=== PATIENT | female | born 2000 | race Caucasian/White ===

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

== ENCOUNTER 2019-03-01 03:42 | Emergency (ER) | payer BC, OTHER ==
[~2019-03-01] VITALS: Ht 175.3 cm; Wt 97.5 kg
[~2019-03-01 03:42] MED LIST changes: +CETI5 PO; +Flovent Diskus50 MCG
[2019-03-01] MEDS ORDERED: PROP10 PO (04:18)
== END 2019-03-01 05:35 | disposition home or self-care (01) ==
LOC: ER 03:42
DX: M54.6 Pain in thoracic spine (principal); Z79.899 Other long term (current) drug therapy; Z79.82 Long term (current) use of aspirin
CPT/HCPCS: 96372; 99283-25; J1885

== ENCOUNTER 2019-03-23 10:38 | Emergency (ER) | payer BC, OTHER ==
[~2019-03-23] VITALS: Ht 177.8 cm; Wt 99.8 kg
[~2019-03-23 10:38] MED LIST changes: +PROP10 PO
[2019-03-23] MEDS ORDERED: Esgic Tablet1 EACH PO (13:02)
== END 2019-03-23 13:15 | disposition home or self-care (01) ==
LOC: ER 10:38
DX: G43.909 Migraine, unspecified, not intractable, without status migrainosus (principal); Z79.899 Other long term (current) drug therapy; Z79.82 Long term (current) use of aspirin
CPT/HCPCS: 93005; 93010; 96361; 96374; 96375; 99283-25; J1200; J1885; J2550; J7120

== ENCOUNTER 2020-01-04 10:57 | Emergency (ER) | payer BC, OTHER ==
[~2020-01-04] VITALS: Ht 170.2 cm; Wt 95.2 kg
[~2020-01-04 10:57] MED LIST changes: +Esgic Tablet1 EACH PO
[2020-01-04] MEDS ORDERED: MIDODRINE HCL10 MG PO (11:22)
[2020-01-04] MEDS ORDERED: AMOCLA875 PO (11:47)
== END 2020-01-04 11:56 | disposition home or self-care (01) ==
LOC: ER 10:57
DX: J32.9 Chronic sinusitis, unspecified (principal); B96.89 Other specified bacterial agents as the cause of diseases classified elsewhere; Z79.82 Long term (current) use of aspirin; Z79.899 Other long term (current) drug therapy
CPT/HCPCS: 99283

== ENCOUNTER 2020-03-08 06:39 | Day surgery (SDC) | payer BC, OTHER ==
[~2020-03-08] VITALS: Ht 177.8 cm; Wt 107.8 kg
[~2020-03-08 06:39] MED LIST changes: +AMOCLA875 PO; +EXTRA PAIN REL1 EAC2 PO; -Excedrin Extra1 EACH PO; +MIDODRINE HCL10 MG PO
--- NOTE | 2020-03-08 08:59 | NUR ---
PT IV DC'D INTACT, PT DRESSED, LOOP EXPLANT SITE STABLE, PT DC'D, PT AMBULATING ON OWN, MOM DRIVING PT HOME, PT ATE 75% BREAKFAST
== END 2020-03-08 09:00 | disposition home or self-care (01) ==
LOC: MHTC 06:39
DX: Z45.010 Encounter for checking and testing of cardiac pacemaker pulse generator [battery] (principal); I49.8 Other specified cardiac arrhythmias; R00.2 Palpitations; R55 Syncope and collapse; R42 Dizziness and giddiness; I95.9 Hypotension, unspecified; G43.909 Migraine, unspecified, not intractable, without status migrainosus; J30.2 Other seasonal allergic rhinitis; Z79.82 Long term (current) use of aspirin; Z79.899 Other long term (current) drug therapy
CPT/HCPCS: 33286; 99152; 99153; J0690; J2250; J3010; J7030; J7040

== ENCOUNTER 2020-11-01 20:57 | Emergency (ER) | payer OTHER, BC ==
[~2020-11-01] VITALS: Ht 177.8 cm; Wt 99.8 kg
[2020-11-01] MEDS ORDERED: Amoxicillin500 MG PO (23:14)
[2020-11-01] MEDS ORDERED: OXYC5 PO (23:52)
== END 2020-11-02 00:13 | disposition home or self-care (01) ==
LOC: ER 20:57
DX: S39.013A Strain of muscle, fascia and tendon of pelvis, initial encounter (principal); S66.911A Strain of unspecified muscle, fascia and tendon at wrist and hand level, right hand, initial encounter; S86.912A Strain of unspecified muscle(s) and tendon(s) at lower leg level, left leg, initial encounter; V28.4XXA Motorcycle driver injured in noncollision transport accident in traffic accident, initial encounter
CPT/HCPCS: 72170; 73110; 73590; 99284-25; A9270

== ENCOUNTER → 2021-04-14 | Outpatient (CLI) | payer OTHER ==
[~2021-04-14] MED LIST changes: +Amoxicillin500 MG PO; +OXYC5 PO
== END ==
LOC: LAB SHORT 10:50 → LAB 10:50
PROVIDERS: Registered Nurse Community Health
DX: Z12.4 Encounter for screening for malignant neoplasm of cervix (principal)
CPT/HCPCS: G0123

== ENCOUNTER 2021-08-07 22:05 | Emergency (ER) | payer OTHER ==
[~2021-08-07] VITALS: Ht 177.8 cm; Wt 97.5 kg
[2021-08-08] MEDS ORDERED: SERT100 PO (01:35)
[2021-08-08] MEDS ORDERED: CYCL10 PO (01:35)
== END 2021-08-08 02:03 | disposition home or self-care (01) ==
LOC: ER 22:05
DX: M62.830 Muscle spasm of back (principal); Z79.899 Other long term (current) drug therapy
CPT/HCPCS: 96372; 99283-25; A9270; J1100; J1885

== ENCOUNTER → 2022-04-18 | Outpatient (CLI) | payer OTHER ==
[~2022-04-18] MED LIST changes: +CYCL10 PO; +MIDO5 PO; -MIDODRINE HCL10 MG PO; +SERT100 PO
[2022-04-19 15:11] LABS: HPV 16 Negative (Negative); HPV 18 Negative (Negative); HPV OTHER HR TYPES Negative (Negative)
== END | disposition home or self-care (01) ==
LOC: LAB SHORT 16:20
PROVIDERS: Registered Nurse Community Health
DX: Z12.4 Encounter for screening for malignant neoplasm of cervix (principal)
CPT/HCPCS: 87624; G0145

== ENCOUNTER → 2022-08-03 | Outpatient (CLI) | payer OTHER ==
[2022-08-03 18:37] LABS: Hematocrit 40.5 % (33.0-51.0); Hemoglobin 13.9 g/dL (11.5-16.0)
[2022-08-03 19:12] LABS: Free Thyroxine 0.88 ng/dL (0.70-1.60)
[2022-08-03 19:14] LABS: Thyroid Stimulating Hormone 1.99 uIU/mL (0.360-4.800); Triiodothyronine, Free 2.6 pg/mL (2.18-3.98)
== END | disposition home or self-care (01) ==
LOC: LAB SHORT 17:20 → LAB 17:20
PROVIDERS: Registered Nurse Community Health
DX: Z31.9 Encounter for procreative management, unspecified (principal); N92.0 Excessive and frequent menstruation with regular cycle; N94.6 Dysmenorrhea, unspecified
CPT/HCPCS: 84439; 84443; 84481; 85014; 85018

== ENCOUNTER → 2022-09-19 | Outpatient (CLI) | payer OTHER ==
[2022-09-19 12:25] LABS: BASOPHILS ABSOLUTE AUTO 0.03 K/mm3 (0.00-0.23); BASOPHILS PERCENT AUTO 0 % (0-2); EOSINOPHILS ABSOLUTE AUTO 0.07 K/mm3 (0.00-0.68); EOSINOPHILS PERCENT AUTO 1 % (0-6); Hematocrit 39.9 % (33.0-51.0); Hemoglobin 13.6 g/dL (11.5-16.0); IMMATURE GRAN ABSOLUTE AUTO 0.02 K/mm3 (0.00-0.10); IMMATURE GRAN PERCENT AUTO 0 % (0-1); LYMPHOCYTES ABSOLUTE AUTO 1.21 K/mm3 (0.84-5.20); LYMPHOCYTES PERCENT AUTO 18 % (21-46); MONOCYTES ABSOLUTE AUTO 0.48 K/mm3 (0.16-1.47); MONOCYTES PERCENT AUTO 7 % (4-13); Mean Corpuscular HGB 29.6 pg (26.0-34.0); Mean Corpuscular HGB Conc 34.1 g/dL (31.5-36.5); Mean Corpuscular Volume 87 fL (80-100); Mean Platelet Volume 10.3 fL (9.1-12.4); NEUTROPHILS ABSOLUTE AUTO 5.07 K/mm3 (1.96-9.15); NEUTROPHILS PERCENT AUTO 74 % (41-73); Platelet Count 273 K/mm3 (150-400); RDW Coefficient Variation 12.5 % (11.7-14.2); RDW Standard Deviation 39.8 fL (35.1-46.3); Red Blood Cell Count 4.59 M/mm3 (3.80-5.20); White Blood Cell Count 6.88 K/mm3 (4.00-11.30)
[2022-09-19 12:28] LABS: Bun/Creatinine Ratio 11.1 (12.0-20.0); Calcium, Blood 9.1 mg/dL (8.5-10.1); Creatinine, Blood 0.9 mg/dL (0.40-1.00)
== END | disposition home or self-care (01) ==
LOC: LAB SHORT 12:19 → LAB 12:19
PROVIDERS: Physician Assistant Medical
DX: N93.9 Abnormal uterine and vaginal bleeding, unspecified (principal)
CPT/HCPCS: 80048; 85025

== ENCOUNTER 2022-12-08 04:38 | Day surgery (SDC) | payer OTHER ==
[2022-12-08 15:09] VITALS: BP 126/92
== END 2022-12-08 16:25 | disposition home or self-care (01) ==
LOC: ATC 04:38
DX: O21.0 Mild hyperemesis gravidarum (principal); Z3A.00 Weeks of gestation of pregnancy not specified; Z79.899 Other long term (current) drug therapy
CPT/HCPCS: 96361; 96374; J2405; J7120

== ENCOUNTER 2022-12-11 00:02 | Day surgery (SDC) | payer OTHER ==
[2022-12-11 15:06] VITALS: BP 127/75
== END 2022-12-11 16:05 | disposition home or self-care (01) ==
LOC: ATC 00:02
DX: O21.0 Mild hyperemesis gravidarum (principal); Z3A.00 Weeks of gestation of pregnancy not specified
CPT/HCPCS: 96361; 96374; J2405; J7120

== ENCOUNTER 2022-12-15 00:23 | Day surgery (SDC) | payer OTHER ==
[2022-12-15 14:08] VITALS: BP 125/83
== END 2022-12-15 15:12 | disposition home or self-care (01) ==
LOC: ATC 00:23
DX: O21.0 Mild hyperemesis gravidarum (principal); Z3A.00 Weeks of gestation of pregnancy not specified
CPT/HCPCS: 96361; 96374; J2405; J7120

== ENCOUNTER 2022-12-18 07:21 | Day surgery (SDC) | payer OTHER ==
[2022-12-18 14:28] VITALS: BP 120/70
== END 2022-12-18 15:30 | disposition home or self-care (01) ==
LOC: ATC 07:21
DX: O21.0 Mild hyperemesis gravidarum (principal); Z3A.00 Weeks of gestation of pregnancy not specified
CPT/HCPCS: 96361; 96374; J2405; J7120

== ENCOUNTER 2022-12-20 02:33 | Day surgery (SDC) | payer OTHER ==
[2022-12-20 14:54] VITALS: BP 126/80
== END 2022-12-20 15:46 | disposition home or self-care (01) ==
LOC: ATC 02:33
DX: O21.0 Mild hyperemesis gravidarum (principal)
CPT/HCPCS: 96361; 96374; J2405; J7120

== ENCOUNTER 2022-12-22 02:53 | Day surgery (SDC) | payer OTHER ==
[2022-12-22 13:41] VITALS: BP 125/83
== END 2022-12-22 14:54 | disposition home or self-care (01) ==
LOC: ATC 02:53
DX: O21.0 Mild hyperemesis gravidarum (principal); Z3A.00 Weeks of gestation of pregnancy not specified
CPT/HCPCS: 96361; 96374; J2405; J7120

== ENCOUNTER 2022-12-25 15:32 | Day surgery (SDC) | payer OTHER ==
[2022-12-25 15:47] VITALS: BP 131/76
== END 2022-12-25 16:49 | disposition home or self-care (01) ==
LOC: ATC 15:32
DX: O21.0 Mild hyperemesis gravidarum (principal); Z3A.00 Weeks of gestation of pregnancy not specified
CPT/HCPCS: 96361; 96374; J2405; J7120

== ENCOUNTER 2022-12-27 04:55 | Day surgery (SDC) | payer OTHER ==
[2022-12-27 15:15] VITALS: BP 137/87
== END 2022-12-27 16:22 | disposition home or self-care (01) ==
LOC: ATC 04:55
DX: O21.0 Mild hyperemesis gravidarum (principal); Z3A.00 Weeks of gestation of pregnancy not specified
CPT/HCPCS: 96361; 96374; J2405; J7120

== ENCOUNTER 2022-12-29 04:58 | Day surgery (SDC) | payer OTHER ==
[2022-12-29 15:32] VITALS: BP 142/86
== END 2022-12-29 16:47 | disposition home or self-care (01) ==
LOC: ATC 04:58
DX: O21.0 Mild hyperemesis gravidarum (principal); Z3A.00 Weeks of gestation of pregnancy not specified
CPT/HCPCS: 96361; 96374; J2405; J7120

== ENCOUNTER 2023-01-01 00:54 | Day surgery (SDC) | payer OTHER ==
[2023-01-01 13:54] VITALS: BP 123/95
== END 2023-01-01 14:55 | disposition home or self-care (01) ==
LOC: ATC 00:54
DX: O21.0 Mild hyperemesis gravidarum (principal); Z3A.00 Weeks of gestation of pregnancy not specified
CPT/HCPCS: 96361; 96374; J2405; J7120

== ENCOUNTER 2023-01-03 02:19 | Day surgery (SDC) | payer OTHER ==
[2023-01-03 15:26] VITALS: BP 128/75
== END 2023-01-03 15:59 | disposition home or self-care (01) ==
LOC: ATC 02:19
DX: O21.0 Mild hyperemesis gravidarum (principal); Z3A.00 Weeks of gestation of pregnancy not specified
CPT/HCPCS: 96361; 96374; C1751; J2405; J7120

== ENCOUNTER 2023-01-05 02:36 | Day surgery (SDC) | payer OTHER ==
[2023-01-05 13:57] VITALS: BP 129/76
== END 2023-01-05 23:01 | disposition home or self-care (01) ==
LOC: ATC 02:36
DX: O21.0 Mild hyperemesis gravidarum (principal); Z3A.00 Weeks of gestation of pregnancy not specified
CPT/HCPCS: 96361; 96374; J2405; J7120

== ENCOUNTER 2023-01-08 11:35 | Day surgery (SDC) | payer OTHER ==
[2023-01-08 11:40] VITALS: BP 131/87
== END 2023-01-08 12:56 | disposition home or self-care (01) ==
LOC: ATC 11:35
DX: O21.9 Vomiting of pregnancy, unspecified (principal); Z3A.00 Weeks of gestation of pregnancy not specified
CPT/HCPCS: 96361; 96374; J2405; J7120

== ENCOUNTER 2023-01-10 04:46 | Day surgery (SDC) | payer OTHER ==
[2023-01-10 08:32] VITALS: BP 133/81
== END 2023-01-10 09:41 | disposition home or self-care (01) ==
LOC: ATC 04:46
DX: O21.0 Mild hyperemesis gravidarum (principal); O99.891 Other specified diseases and conditions complicating pregnancy; R22.32 Localized swelling, mass and lump, left upper limb; Z3A.00 Weeks of gestation of pregnancy not specified; Z79.899 Other long term (current) drug therapy
CPT/HCPCS: 96361; 96374; J2405; J7120

== ENCOUNTER → 2023-01-11 | Outpatient (CLI) | payer OTHER ==
[2023-01-13 00:08] LABS: CHLAMYDIA TRACHOMATIS, NAA Negative (Negative)
== END ==
LOC: LAB SHORT 15:40 → LAB 15:40
PROVIDERS: Registered Nurse Community Health
DX: Z34.01 Encounter for supervision of normal first pregnancy, first trimester (principal)
CPT/HCPCS: 87491; 87591

== ENCOUNTER 2023-01-12 04:33 | Day surgery (SDC) | payer OTHER ==
[2023-01-12 13:40] VITALS: BP 135/84
--- NOTE | 2023-01-12 16:26 | NUR ---
PT REPORTS THAT SHE HAD SPOKEN WITH Simin TREVINO AND IS EXPECTING TO HAVE NEW ORDERS FOR A DIFFERENT ANTIEMETIC. NO NEW ORDERS REC'D AT THIS TIME. FAXED A REQUEST TO Simin TREVINO'S OFFICE TO CHECK ON STATUS OF POSSIBLE NEW MEDICATION FOR NAUSEA. PT REPORTS SHE WAS AT URGENT CARE ON SUNDAY AND THEY CONFIRMED A CLOOD CLOT TO HER TAMIKO.
== END 2023-01-12 15:00 | disposition home or self-care (01) ==
LOC: ATC 04:33
DX: O21.0 Mild hyperemesis gravidarum (principal); Z3A.00 Weeks of gestation of pregnancy not specified; Z88.8 Allergy status to other drugs, medicaments and biological substances
CPT/HCPCS: 96361; 96374; J2405; J7120

== ENCOUNTER 2023-01-17 01:47 | Day surgery (SDC) | payer OTHER ==
[2023-01-17 15:12] VITALS: BP 157/79
== END 2023-01-17 16:10 | disposition home or self-care (01) ==
LOC: ATC 01:47
DX: O21.0 Mild hyperemesis gravidarum (principal)
CPT/HCPCS: 96361; 96374; C1751; J2405; J7120

== ENCOUNTER 2023-01-19 01:44 | Day surgery (SDC) | payer OTHER ==
[2023-01-19 14:22] VITALS: BP 140/91
== END 2023-01-19 15:26 | disposition home or self-care (01) ==
LOC: ATC 01:44
DX: O21.0 Mild hyperemesis gravidarum (principal); Z3A.00 Weeks of gestation of pregnancy not specified
CPT/HCPCS: 96361; 96374; 96375; J2405; J2765; J7120

== ENCOUNTER 2023-01-22 00:20 | Day surgery (SDC) | payer OTHER ==
[2023-01-22 10:29] VITALS: BP 124/90
== END 2023-01-22 11:41 | disposition home or self-care (01) ==
LOC: ATC 00:20
DX: O21.0 Mild hyperemesis gravidarum (principal)
CPT/HCPCS: 96361; 96374; J2405; J7120

== ENCOUNTER 2023-01-24 05:56 | Day surgery (SDC) | payer OTHER ==
[2023-01-24 16:07] VITALS: BP 125/81
== END 2023-01-24 17:11 | disposition home or self-care (01) ==
LOC: ATC 05:56
DX: O21.0 Mild hyperemesis gravidarum (principal); Z3A.00 Weeks of gestation of pregnancy not specified
CPT/HCPCS: 96361; 96374; J2405; J7120

== ENCOUNTER 2023-01-26 02:28 | Day surgery (SDC) | payer OTHER ==
[2023-01-26 14:49] VITALS: BP 148/93
== END 2023-01-26 15:55 | disposition home or self-care (01) ==
LOC: ATC 02:28
DX: O21.0 Mild hyperemesis gravidarum (principal)
CPT/HCPCS: 96361; 96374; J2405; J7120

== ENCOUNTER 2023-01-29 01:44 | Day surgery (SDC) | payer OTHER ==
[2023-01-29 13:10] VITALS: BP 153/80
== END 2023-01-29 14:18 | disposition home or self-care (01) ==
LOC: ATC 01:44
DX: O21.0 Mild hyperemesis gravidarum (principal); Z3A.00 Weeks of gestation of pregnancy not specified
CPT/HCPCS: 96361; 96374; J2405; J7120

== ENCOUNTER 2023-01-31 02:13 | Day surgery (SDC) | payer OTHER ==
[2023-01-31 14:39] VITALS: BP 133/79
== END 2023-01-31 15:44 | disposition home or self-care (01) ==
LOC: ATC 02:13
DX: O21.0 Mild hyperemesis gravidarum (principal); Z3A.00 Weeks of gestation of pregnancy not specified
CPT/HCPCS: 96361; 96374; J2405; J7120

== ENCOUNTER 2023-02-02 10:46 | Day surgery (SDC) | payer OTHER ==
[2023-02-02 14:18] VITALS: BP 148/89
== END 2023-02-02 15:18 | disposition home or self-care (01) ==
LOC: ATC 10:46
DX: O21.0 Mild hyperemesis gravidarum (principal); Z3A.00 Weeks of gestation of pregnancy not specified
CPT/HCPCS: 96361; 96374; J2405; J7120

== ENCOUNTER 2023-02-05 02:28 | Day surgery (SDC) | payer OTHER ==
[2023-02-05 10:46] VITALS: BP 131/89
== END 2023-02-05 11:50 | disposition home or self-care (01) ==
LOC: ATC 02:28
DX: O21.0 Mild hyperemesis gravidarum (principal); Z3A.00 Weeks of gestation of pregnancy not specified
CPT/HCPCS: 96361; 96374; J2405; J7120

== ENCOUNTER 2023-02-07 02:01 | Day surgery (SDC) | payer OTHER ==
[2023-02-07 10:30] VITALS: BP 135/82
== END 2023-02-07 11:39 | disposition home or self-care (01) ==
LOC: ATC 02:01
DX: O21.0 Mild hyperemesis gravidarum (principal)
CPT/HCPCS: 96361; 96374; J2405; J7120

== ENCOUNTER 2023-02-08 02:42 | Day surgery (SDC) | payer OTHER ==
[2023-02-08 15:38] VITALS: BP 143/80
== END 2023-02-08 16:42 | disposition home or self-care (01) ==
LOC: ATC 02:42
DX: O21.0 Mild hyperemesis gravidarum (principal); Z3A.00 Weeks of gestation of pregnancy not specified; Z79.899 Other long term (current) drug therapy
CPT/HCPCS: 96361; 96374; J2405; J7120

== ENCOUNTER 2023-02-13 03:02 | Day surgery (SDC) | payer OTHER ==
--- NOTE | 2023-02-12 15:26 | NUR ---
PT CALLED AND CANCELED HER APPOINTMENT IN THE [facility] TODAY.
[2023-02-13 16:00] VITALS: BP 135/82
[2023-02-13] MEDS ORDERED: TRANSDERM-SCOP1 EA13 TD (16:04)
== END 2023-02-13 17:03 | disposition home or self-care (01) ==
LOC: ATC 03:02
DX: O21.0 Mild hyperemesis gravidarum (principal); G43.909 Migraine, unspecified, not intractable, without status migrainosus; Z79.899 Other long term (current) drug therapy
CPT/HCPCS: 96361; 96374; J2405; J7120

== ENCOUNTER 2023-02-14 02:03 | Day surgery (SDC) | payer OTHER ==
[~2023-02-14 02:03] MED LIST changes: +TRANSDERM-SCOP1 EA13 TD
[2023-02-14 10:15] VITALS: BP 156/90
== END 2023-02-14 11:42 | disposition home or self-care (01) ==
LOC: ATC 02:03
DX: O21.0 Mild hyperemesis gravidarum (principal); Z3A.00 Weeks of gestation of pregnancy not specified; Z79.899 Other long term (current) drug therapy
CPT/HCPCS: 96361; 96374; C1751; J2405; J7120

== ENCOUNTER 2023-02-16 03:09 | Day surgery (SDC) | payer OTHER ==
[2023-02-16 10:08] VITALS: BP 141/91
== END 2023-02-16 11:07 | disposition home or self-care (01) ==
LOC: ATC 03:09
DX: O21.0 Mild hyperemesis gravidarum (principal)
CPT/HCPCS: 96361; 96374; J2405; J7120

== ENCOUNTER 2023-02-20 04:06 | Day surgery (SDC) | payer OTHER ==
[2023-02-20 16:14] VITALS: BP 137/80
[2023-02-21] MEDS ORDERED: LABE100 PO (14:00)
== END 2023-02-20 17:17 | disposition home or self-care (01) ==
LOC: ATC 04:06
DX: O21.0 Mild hyperemesis gravidarum (principal); Z3A.00 Weeks of gestation of pregnancy not specified
CPT/HCPCS: 96361; 96374; J2405; J7120

== ENCOUNTER 2023-02-21 03:00 | Day surgery (SDC) | payer OTHER ==
[2023-02-21] MEDS ORDERED: LABE100 PO (14:00)
[2023-02-21 14:01] VITALS: BP 143/82
== END 2023-02-21 15:03 | disposition home or self-care (01) ==
LOC: ATC 03:00
DX: O21.0 Mild hyperemesis gravidarum (principal)
CPT/HCPCS: 96361; 96374; J2405; J7120

== ENCOUNTER 2023-02-23 03:56 | Day surgery (SDC) | payer OTHER ==
[~2023-02-23 03:56] MED LIST changes: +LABE100 PO
[2023-02-23 15:58] VITALS: BP 148/87
== END 2023-02-23 17:12 | disposition home or self-care (01) ==
LOC: ATC 03:56
DX: O21.0 Mild hyperemesis gravidarum (principal)
CPT/HCPCS: 96361; 96374; J2405; J7120

== ENCOUNTER 2023-02-26 00:27 | Day surgery (SDC) | payer OTHER ==
[2023-02-26 10:36] VITALS: BP 147/83
== END 2023-02-26 11:45 | disposition home or self-care (01) ==
LOC: ATC 00:27
DX: O21.0 Mild hyperemesis gravidarum (principal)
CPT/HCPCS: 96361; 96374; J2405; J7120

== ENCOUNTER 2023-02-28 00:47 | Day surgery (SDC) | payer OTHER ==
[2023-02-28 15:44] VITALS: BP 131/79
== END 2023-02-28 16:37 | disposition home or self-care (01) ==
LOC: ATC 00:47
DX: O21.0 Mild hyperemesis gravidarum (principal); Z79.899 Other long term (current) drug therapy
CPT/HCPCS: 96361; 96374; C1751; J2405; J7120

== ENCOUNTER 2023-03-02 03:09 | Day surgery (SDC) | payer OTHER ==
[2023-03-02 14:58] VITALS: BP 116/86
== END 2023-03-02 16:06 | disposition home or self-care (01) ==
LOC: ATC 03:09
DX: O21.0 Mild hyperemesis gravidarum (principal); Z3A.00 Weeks of gestation of pregnancy not specified
CPT/HCPCS: 96361; 96374; J2405; J7120

== ENCOUNTER 2023-03-06 01:39 | Day surgery (SDC) | payer OTHER ==
[2023-03-06 15:10] VITALS: BP 127/79
== END 2023-03-06 16:07 | disposition home or self-care (01) ==
LOC: ATC 01:39
DX: O21.0 Mild hyperemesis gravidarum (principal); Z3A.00 Weeks of gestation of pregnancy not specified
CPT/HCPCS: 96361; 96374; J2405; J7120

== ENCOUNTER 2023-03-07 04:44 | Day surgery (SDC) | payer OTHER ==
[2023-03-07 13:56] VITALS: BP 129/78
== END 2023-03-07 15:03 | disposition home or self-care (01) ==
LOC: ATC 04:44
DX: O21.0 Mild hyperemesis gravidarum (principal); Z3A.00 Weeks of gestation of pregnancy not specified
CPT/HCPCS: 96361; 96374; J2405; J7120

== ENCOUNTER 2023-03-09 03:19 | Day surgery (SDC) | payer OTHER ==
[2023-03-09 14:00] VITALS: BP 139/81
== END 2023-03-09 15:15 | disposition home or self-care (01) ==
LOC: ATC 03:19
DX: O21.0 Mild hyperemesis gravidarum (principal); Z3A.01 Less than 8 weeks gestation of pregnancy
CPT/HCPCS: 96361; 96374; J2405; J7120

== ENCOUNTER 2023-03-12 14:02 | Day surgery (SDC) | payer OTHER ==
[2023-03-12 14:34] VITALS: BP 129/79
--- NOTE | 2023-03-12 16:04 | NUR ---
STOP TIME 1672
[2023-03-13] MEDS ORDERED: ASPI81CH PO (19:52)
[2023-03-13] MEDS ORDERED: ONDA4 PO (19:53)
== END 2023-03-12 15:35 | disposition home or self-care (01) ==
LOC: ATC 14:02
DX: O21.0 Mild hyperemesis gravidarum (principal); Z3A.01 Less than 8 weeks gestation of pregnancy
CPT/HCPCS: 96361; 96374; J2405; J7120

== ENCOUNTER 2023-03-13 17:51 | Emergency (ER) | payer OTHER ==
[~2023-03-13] VITALS: Ht 172.7 cm; Wt 108.9 kg
[2023-03-13 18:21] VITALS: BP 136/95
[2023-03-13 18:41] LABS: BASOPHILS ABSOLUTE AUTO 0.03 K/mm3 (0.00-0.23); BASOPHILS PERCENT AUTO 0 % (0-2); EOSINOPHILS ABSOLUTE AUTO 0.04 K/mm3 (0.00-0.68); EOSINOPHILS PERCENT AUTO 0 % (0-6); Hematocrit 35.8 % (33.0-51.0); Hemoglobin 12.1 g/dL (11.5-16.0); IMMATURE GRAN ABSOLUTE AUTO 0.03 K/mm3 (0.00-0.10); IMMATURE GRAN PERCENT AUTO 0 % (0-1); LYMPHOCYTES ABSOLUTE AUTO 1.66 K/mm3 (0.84-5.20); LYMPHOCYTES PERCENT AUTO 18 % (21-46); MONOCYTES ABSOLUTE AUTO 0.56 K/mm3 (0.16-1.47); MONOCYTES PERCENT AUTO 6 % (4-13); Mean Corpuscular HGB 29.2 pg (26.0-34.0); Mean Corpuscular HGB Conc 33.8 g/dL (31.5-36.5); Mean Corpuscular Volume 86 fL (80-100); Mean Platelet Volume 10.5 fL (9.1-12.4); NEUTROPHILS ABSOLUTE AUTO 6.97 K/mm3 (1.96-9.15); NEUTROPHILS PERCENT AUTO 75 % (41-73); Platelet Count 255 K/mm3 (150-400); RDW Coefficient Variation 13.5 % (11.7-14.2); Red Blood Cell Count 4.15 M/mm3 (3.80-5.20); White Blood Cell Count 9.29 K/mm3 (4.00-11.30)
[2023-03-13 18:59] LABS: Source, Urine Clean Catch
[2023-03-13 19:03] LABS: Appearance, Urine Cloudy (Clear); Bilirubin, Urine Neg (Neg); Blood, Urine 1+ (Neg); Color, Urine Yellow (P-Yellow); Glucose Qualitative, Urine Neg (Neg); Ketones, Urine 4+ (Neg); Leukocyte Esterase, Urine 1+ (Neg); Nitrite, Urine Neg (Neg); Protein, Urine 1+ (Neg); Specific Gravity, Urine 1.015 (1.003-1.022); Urobilinogen, Urine 1+ (Normal)
[2023-03-13 19:05] LABS: Albumin/Globulin Ratio 0.7 (0.8-1.8); Bilirubin, Total 0.8 mg/dL (0.1-1.0); Bun/Creatinine Ratio 10.3 (12.0-20.0); Calcium, Blood 8.9 mg/dL (8.5-10.1); Creatinine, Blood 0.49 mg/dL (0.40-1.00); Globulin, Blood 4.2 g/dL (2.2-4.0); Potassium, Blood 3.8 mmol/L (3.5-5.5); Total Protein, Blood 7.2 g/dL (6.4-8.2)
[2023-03-13 19:12] LABS: Amorphous Light (0-Heavy); Bacteria Mod /hpf; Mucus Light (0-Heavy); Squamous Epithelial Cells Many /hpf (Few); Transitional Epithelial Cells Rare /hpf (0-Rare)
[2023-03-13] MEDS ORDERED: ASPI81CH PO (19:52)
[2023-03-13] MEDS ORDERED: ONDA4 PO (19:53)
[2023-03-13 20:33] LABS: Influenza A, PCR NEGATIVE (NEGATIVE); Influenza B, PCR NEGATIVE (NEGATIVE); Resp Syncytial Virus, PCR NEGATIVE (NEGATIVE); SARS-Cov-2 (COVID-19) PCR, MMC NEGATIVE (NEGATIVE)
== END 2023-03-13 21:07 | disposition home or self-care (01) ==
LOC: ER 17:51
PROVIDERS: Student in an Organized Health Care Education/Training Program
DX: O26.892 Other specified pregnancy related conditions, second trimester (principal); R51.9 Headache, unspecified; Z3A.22 22 weeks gestation of pregnancy; Z20.822 Contact with and (suspected) exposure to COVID-19
CPT/HCPCS: 0241U; 80053; 81001; 85025; 87086; 99284

== ENCOUNTER 2023-03-14 03:40 | Day surgery (SDC) | payer OTHER ==
[~2023-03-14 03:40] MED LIST changes: +ASPI81CH PO; +ONDA4 PO
[2023-03-14 15:11] VITALS: BP 121/70
== END 2023-03-14 16:10 | disposition home or self-care (01) ==
LOC: ATC 03:40
DX: O21.0 Mild hyperemesis gravidarum (principal); Z3A.00 Weeks of gestation of pregnancy not specified
CPT/HCPCS: 96361; 96374; J2405; J7120

== ENCOUNTER 2023-03-16 03:11 | Day surgery (SDC) | payer OTHER ==
[2023-03-16 15:08] VITALS: BP 114/83
[2023-03-16] MEDS ORDERED: PROMETHAZINE12.5 M1 PO (15:10)
== END 2023-03-16 16:12 | disposition home or self-care (01) ==
LOC: ATC 03:11
DX: O21.0 Mild hyperemesis gravidarum (principal); Z3A.00 Weeks of gestation of pregnancy not specified
CPT/HCPCS: 96361; 96374; J2405; J7120

== ENCOUNTER 2023-03-19 01:20 | Day surgery (SDC) | payer OTHER ==
[~2023-03-19 01:20] MED LIST changes: +PROMETHAZINE12.5 M1 PO
[2023-03-19 10:15] VITALS: BP 137/85
== END 2023-03-19 11:24 | disposition home or self-care (01) ==
LOC: ATC 01:20
DX: O21.0 Mild hyperemesis gravidarum (principal)
CPT/HCPCS: 96361; 96374; J2405; J7120

== ENCOUNTER 2023-03-21 15:40 | Day surgery (SDC) | payer OTHER ==
[2023-03-21 16:00] VITALS: BP 140/89
== END 2023-03-21 17:08 | disposition home or self-care (01) ==
LOC: ATC 15:40
DX: O21.0 Mild hyperemesis gravidarum (principal); Z3A.00 Weeks of gestation of pregnancy not specified
CPT/HCPCS: 96361; 96374; J2405; J7120

== ENCOUNTER 2023-03-23 02:11 | Day surgery (SDC) | payer OTHER ==
[2023-03-23 14:10] VITALS: BP 151/74
== END 2023-03-23 15:15 | disposition home or self-care (01) ==
LOC: ATC 02:11
DX: O21.0 Mild hyperemesis gravidarum (principal)
CPT/HCPCS: 96361; 96374; J2405; J7120

== ENCOUNTER 2023-03-26 03:18 | Day surgery (SDC) | payer OTHER ==
[2023-03-26 15:19] VITALS: BP 126/77
== END 2023-03-26 16:20 | disposition home or self-care (01) ==
LOC: ATC 03:18
DX: O21.0 Mild hyperemesis gravidarum (principal); Z3A.00 Weeks of gestation of pregnancy not specified; Z79.899 Other long term (current) drug therapy
CPT/HCPCS: 96361; 96374; J2405; J7120

== ENCOUNTER 2023-03-28 02:33 | Day surgery (SDC) | payer OTHER ==
[2023-03-28 14:15] VITALS: BP 145/84
== END 2023-03-28 15:25 | disposition home or self-care (01) ==
LOC: ATC 02:33
DX: O21.0 Mild hyperemesis gravidarum (principal); Z3A.01 Less than 8 weeks gestation of pregnancy
CPT/HCPCS: 96361; 96374; J2405; J7120

== ENCOUNTER 2023-03-30 01:09 | Day surgery (SDC) | payer OTHER ==
[2023-03-30 14:55] VITALS: BP 133/83
== END 2023-03-30 16:00 | disposition home or self-care (01) ==
LOC: ATC 01:09
DX: O21.0 Mild hyperemesis gravidarum (principal)
CPT/HCPCS: 96361; 96374; J2405; J7120

== ENCOUNTER → 2023-04-02 | Outpatient (CLI) | payer OTHER ==
[2023-04-02 20:02] LABS: Creatinine, Urine Random 19.4 mg/dL (27.00-270.00); Protein, Urine Random 6.3 mg/dL (0.0-11.9); Protein/Creat Ratio, Ur Random 0.3
== END | disposition home or self-care (01) ==
LOC: LAB EV 18:25 → LAB SHORT 18:25
PROVIDERS: Obstetrics & Gynecology
DX: O16.9 Unspecified maternal hypertension, unspecified trimester (principal)
CPT/HCPCS: 82570; 84156

== ENCOUNTER 2023-04-04 02:42 | Day surgery (SDC) | payer OTHER ==
[2023-04-04 15:15] VITALS: BP 138/68
== END 2023-04-04 16:20 | disposition home or self-care (01) ==
LOC: ATC 02:42
DX: O21.0 Mild hyperemesis gravidarum (principal); O16.9 Unspecified maternal hypertension, unspecified trimester; Z3A.00 Weeks of gestation of pregnancy not specified; Z79.899 Other long term (current) drug therapy
CPT/HCPCS: 36415; 80053; 81050; 85025; 96361; 96374; J2405; J7120

== ENCOUNTER 2023-04-06 00:20 | Day surgery (SDC) | payer OTHER ==
[~2023-04-06 00:20] MED LIST changes: -IRON SUPPLEMENT PO
[2023-04-06 16:21] VITALS: BP 139/79
[2023-04-06 16:57] LABS: Percent Saturation 8.9 % (15.0-50.0)
== END 2023-04-06 15:16 | disposition home or self-care (01) ==
LOC: ATC 00:20
PROVIDERS: Obstetrics & Gynecology
DX: O21.0 Mild hyperemesis gravidarum (principal); O16.9 Unspecified maternal hypertension, unspecified trimester; Z3A.00 Weeks of gestation of pregnancy not specified
CPT/HCPCS: 82728; 83540; 83550; 84156; 96361; 96374; J2405; J7120

== ENCOUNTER → 2023-04-06 | Outpatient (CLI) | payer OTHER ==
[~2023-04-06] MED LIST changes: +IRON SUPPLEMENT PO
== END | disposition home or self-care (01) ==
LOC: LAB SHORT 14:38 → LAB 14:38
PROVIDERS: Obstetrics & Gynecology
DX: O16.9 Unspecified maternal hypertension, unspecified trimester (principal)
CPT/HCPCS: 84156

== ENCOUNTER 2023-04-09 02:42 | Day surgery (SDC) | payer OTHER ==
[2023-04-09 14:04] VITALS: BP 145/85
[2023-04-09] MEDS ORDERED: IRON SUPPLEMENT PO (16:05)
== END 2023-04-09 15:15 | disposition home or self-care (01) ==
LOC: ATC 02:42
DX: O21.0 Mild hyperemesis gravidarum (principal); Z3A.00 Weeks of gestation of pregnancy not specified
CPT/HCPCS: 96361; 96374; J2405; J7120

== ENCOUNTER 2023-04-11 02:43 | Day surgery (SDC) | payer OTHER ==
[~2023-04-11 02:43] MED LIST changes: +IRON SUPPLEMENT PO
[2023-04-11 14:15] VITALS: BP 154/93
== END 2023-04-11 15:17 | disposition home or self-care (01) ==
LOC: ATC 02:43
DX: O21.0 Mild hyperemesis gravidarum (principal); Z3A.01 Less than 8 weeks gestation of pregnancy
CPT/HCPCS: 96361; 96374; J2405; J7120

== ENCOUNTER 2023-04-13 01:39 | Day surgery (SDC) | payer OTHER ==
[2023-04-13 09:13] VITALS: BP 146/91
== END 2023-04-13 10:10 | disposition home or self-care (01) ==
LOC: ATC 01:39
DX: O21.0 Mild hyperemesis gravidarum (principal); Z3A.01 Less than 8 weeks gestation of pregnancy
CPT/HCPCS: 96361; 96374; J2405; J7120

== ENCOUNTER 2023-04-16 01:44 | Day surgery (SDC) | payer OTHER ==
[2023-04-16] MEDS ORDERED: Ondansetron HCl 2 MG / ML 2ML Vial IV SCH (06:55)
[2023-04-16] MEDS ORDERED: Lactated Ringer's 1,000 ML IV SCH ×2 (06:55→14:00)
[2023-04-16] MEDS ORDERED: Lactated Ringer's 1,000 ML IV ONE (14:00)
[2023-04-16 14:20] VITALS: BP 130/88
== END 2023-04-16 15:22 | disposition home or self-care (01) ==
LOC: ATC 01:44
DX: O21.0 Mild hyperemesis gravidarum (principal)
CPT/HCPCS: 96361; 96374; J2405; J7120

== ENCOUNTER 2023-04-20 00:44 | Day surgery (SDC) | payer OTHER ==
[2023-04-20] MEDS ORDERED: Ondansetron HCl 2 MG / ML 2ML Vial IV SCH (07:00)
[2023-04-20] MEDS ORDERED: Lactated Ringer's 1,000 ML IV SCH (07:00)
[2023-04-20 13:52] VITALS: BP 155/80
== END 2023-04-20 15:05 | disposition home or self-care (01) ==
LOC: ATC 00:44
DX: O21.0 Mild hyperemesis gravidarum (principal); O13.2 Gestational [pregnancy-induced] hypertension without significant proteinuria, second trimester; O99.012 Anemia complicating pregnancy, second trimester; G43.909 Migraine, unspecified, not intractable, without status migrainosus; J45.909 Unspecified asthma, uncomplicated; G90.A Postural orthostatic tachycardia syndrome [POTS]; Z3A.00 Weeks of gestation of pregnancy not specified
CPT/HCPCS: 96361; 96374; J2405; J7120

== ENCOUNTER 2023-04-23 00:29 | Day surgery (SDC) | payer OTHER ==
[2023-04-23] MEDS ORDERED: Lactated Ringer's 1,000 ML IV SCH (07:25)
[2023-04-23] MEDS ORDERED: Ondansetron HCl 2 MG / ML 2ML Vial IV SCH (07:25)
[2023-04-23 14:13] VITALS: BP 133/78
== END 2023-04-23 15:17 | disposition home or self-care (01) ==
LOC: ATC 00:29
DX: O21.0 Mild hyperemesis gravidarum (principal); Z3A.00 Weeks of gestation of pregnancy not specified
CPT/HCPCS: 96361; 96374; J2405; J7120

== ENCOUNTER 2023-04-25 00:02 | Day surgery (SDC) | payer OTHER ==
[2023-04-25] MEDS ORDERED: Ondansetron HCl 2 MG / ML 2ML Vial IV SCH (06:55)
[2023-04-25] MEDS ORDERED: Lactated Ringer's 1,000 ML IV SCH (06:55)
[2023-04-25 15:10] VITALS: BP 144/89
== END 2023-04-25 16:15 | disposition home or self-care (01) ==
LOC: ATC 00:02
DX: O21.0 Mild hyperemesis gravidarum (principal)
CPT/HCPCS: 96361; 96374; J2405; J7120

== ENCOUNTER 2023-04-27 01:08 | Day surgery (SDC) | payer OTHER ==
[2023-04-27] MEDS ORDERED: Lactated Ringer's 1,000 ML IV SCH ×2 (07:00→10:15)
[2023-04-27] MEDS ORDERED: Ondansetron HCl 2 MG / ML 2ML Vial IV SCH (07:00)
[2023-04-27] MEDS ORDERED: Lactated Ringer's 1,000 ML IV ONE (10:13)
[2023-04-27 10:14] VITALS: BP 138/82
== END 2023-04-27 11:23 | disposition home or self-care (01) ==
LOC: ATC 01:08
DX: O21.0 Mild hyperemesis gravidarum (principal); F32.9 Major depressive disorder, single episode, unspecified; O16.9 Unspecified maternal hypertension, unspecified trimester; Z79.82 Long term (current) use of aspirin
CPT/HCPCS: 96360; J7120

== ENCOUNTER 2023-04-30 09:04 | Day surgery (SDC) | payer OTHER ==
[~2023-04-30 09:04] MED LIST changes: +Lactated Ringer's 1,000 ML IV SCH; +Ondansetron HCl 2 MG / ML 2ML Vial IV SCH
[2023-04-30 15:17] VITALS: BP 136/83
== END 2023-04-30 22:37 | disposition home or self-care (01) ==
LOC: ATC 09:04
DX: O21.0 Mild hyperemesis gravidarum (principal); Z3A.00 Weeks of gestation of pregnancy not specified; Z88.8 Allergy status to other drugs, medicaments and biological substances; O99.810 Abnormal glucose complicating pregnancy
CPT/HCPCS: 36415; 82950; 85025; 96361; 96374; J2405; J7120

== ENCOUNTER 2023-05-02 05:13 | Day surgery (SDC) | payer OTHER ==
[~2023-05-02 05:13] MED LIST changes: -Lactated Ringer's 1,000 ML IV SCH; -Ondansetron HCl 2 MG / ML 2ML Vial IV SCH
[2023-05-02] MEDS ORDERED: Lactated Ringer's 1,000 ML IV SCH (06:55)
[2023-05-02] MEDS ORDERED: Ondansetron HCl 2 MG / ML 2ML Vial IV SCH (06:55)
[2023-05-02 15:10] VITALS: BP 142/87
== END 2023-05-02 16:31 | disposition home or self-care (01) ==
LOC: ATC 05:13
DX: O21.0 Mild hyperemesis gravidarum (principal); O16.9 Unspecified maternal hypertension, unspecified trimester; O99.019 Anemia complicating pregnancy, unspecified trimester; G43.909 Migraine, unspecified, not intractable, without status migrainosus; J45.909 Unspecified asthma, uncomplicated; G90.A Postural orthostatic tachycardia syndrome [POTS]; Z3A.26 26 weeks gestation of pregnancy; Z88.8 Allergy status to other drugs, medicaments and biological substances; O99.810 Abnormal glucose complicating pregnancy
CPT/HCPCS: 36415; 82951; 82952; 83036; 96361; 96374; J2405; J7120

== ENCOUNTER 2023-05-04 05:00 | Day surgery (SDC) | payer OTHER ==
[2023-05-04] MEDS ORDERED: Ondansetron HCl 2 MG / ML 2ML Vial IV SCH (06:55)
[2023-05-04] MEDS ORDERED: Lactated Ringer's 1,000 ML IV SCH (06:55)
[2023-05-04 14:07] VITALS: BP 152/84
== END 2023-05-04 15:08 | disposition home or self-care (01) ==
LOC: ATC 05:00
DX: O21.0 Mild hyperemesis gravidarum (principal); Z88.8 Allergy status to other drugs, medicaments and biological substances; O16.9 Unspecified maternal hypertension, unspecified trimester; G43.909 Migraine, unspecified, not intractable, without status migrainosus; J45.909 Unspecified asthma, uncomplicated; G90.A Postural orthostatic tachycardia syndrome [POTS]
CPT/HCPCS: 96361; 96374; J2405; J7120

== ENCOUNTER 2023-05-09 01:12 | Day surgery (SDC) | payer OTHER ==
[2023-05-09] MEDS ORDERED: IRON SUCROSE COMPLEX IV SCH (06:00)
[2023-05-09] MEDS ORDERED: NS IV SCH (06:00)
[2023-05-09] MEDS ORDERED: Lactated Ringer's 1,000 ML IV SCH (07:10)
[2023-05-09] MEDS ORDERED: Ondansetron HCl 2 MG / ML 2ML Vial IV SCH (07:10)
[2023-05-09 13:47] VITALS: BP 120/79
[2023-05-09] MEDS ORDERED: VENOFER100 MG/5 M IV (13:49)
== END 2023-05-09 15:15 | disposition home or self-care (01) ==
LOC: ATC 01:12
DX: O21.0 Mild hyperemesis gravidarum (principal); Z3A.00 Weeks of gestation of pregnancy not specified; F41.8 Other specified anxiety disorders; O99.019 Anemia complicating pregnancy, unspecified trimester; D50.9 Iron deficiency anemia, unspecified; O99.340 Other mental disorders complicating pregnancy, unspecified trimester
CPT/HCPCS: J1756; J2405; J7120

== ENCOUNTER 2023-07-02 19:00 | Inpatient (IN) | payer OTHER ==
[~2023-07-02] VITALS: Ht 172.7 cm; Wt 118.2 kg
[~2023-07-02 19:00] MED LIST changes: +Metronidazole70 GM VAG; +VENOFER100 MG/5 M IV
[2023-07-02] MEDS ORDERED: LR Oxytocin 20 Units 1,000 ML IV SCH (19:20)
[2023-07-02] MEDS ORDERED: Lactated Ringer's 1,000 ML IV PRN (19:20)
[2023-07-02] MEDS ORDERED: FentaNYL 2mcg/ml-Bup 0.1% Epd 250 ML EPI PRN (19:20)
[2023-07-02] MEDS ORDERED: Misoprostol 200 MCG Tab PR SCH (19:20)
[2023-07-02] MEDS ORDERED: Bupivacaine 0.5% HCl 5 MG/ML 30MLVIAL XX SCH (19:20)
[2023-07-02] MEDS ORDERED: Oxytocin 10 Unit / ML Vial IM SCH (19:20)
[2023-07-02] MEDS ORDERED: Lactated Ringer's 1,000 ML IV SCH ×3 (19:20)
[2023-07-02] MEDS ORDERED: Lidocaine HCl 1% 30 ML SDV XX SCH (19:20)
[2023-07-02] MEDS ORDERED: Methylergonovine Maleate 0.2MG / ML 1ML Amp IM SCH (19:20)
[2023-07-02] MEDS ORDERED: ePHEDrine Sulfate 50 MG/ML 1ML Injection XX PRN (19:20)
[2023-07-02] MEDS ORDERED: Castor Oil 59.146 ML BTL TOP SCH (19:20)
[2023-07-02] MEDS ORDERED: Bupivacaine HCl 2.5 MG/ML 10ML P/F Injection XX SCH (19:20)
[2023-07-02] MEDS ORDERED: Misoprostol 25 MCG Tab VAG PRN (19:25)
[2023-07-02 19:49] VITALS: BP 137/90
[2023-07-02 20:09] LABS: BASOPHILS ABSOLUTE AUTO 0.02 K/mm3 (0.00-0.23); BASOPHILS PERCENT AUTO 0 % (0-2); EOSINOPHILS ABSOLUTE AUTO 0.03 K/mm3 (0.00-0.68); EOSINOPHILS PERCENT AUTO 1 % (0-6); Hematocrit 37.3 % (33.0-51.0); Hemoglobin 12.9 g/dL (11.5-16.0); IMMATURE GRAN ABSOLUTE AUTO 0.02 K/mm3 (0.00-0.10); IMMATURE GRAN PERCENT AUTO 0 % (0-1); LYMPHOCYTES ABSOLUTE AUTO 1.53 K/mm3 (0.84-5.20); LYMPHOCYTES PERCENT AUTO 23 % (21-46); MONOCYTES ABSOLUTE AUTO 0.56 K/mm3 (0.16-1.47); MONOCYTES PERCENT AUTO 9 % (4-13); Mean Corpuscular HGB 29.9 pg (26.0-34.0); Mean Corpuscular HGB Conc 34.6 g/dL (31.5-36.5); Mean Corpuscular Volume 87 fL (80-100); Mean Platelet Volume 10.3 fL (9.1-12.4); NEUTROPHILS ABSOLUTE AUTO 4.46 K/mm3 (1.96-9.15); NEUTROPHILS PERCENT AUTO 67 % (41-73); Platelet Count 201 K/mm3 (150-400); RDW Coefficient Variation 18.9 % (11.7-14.2); RDW Standard Deviation 59.7 fL (35.1-46.3); Red Blood Cell Count 4.31 M/mm3 (3.80-5.20); White Blood Cell Count 6.62 K/mm3 (4.00-11.30)
[2023-07-02 20:37] VITALS: BP 143/90
[2023-07-02 21:34] VITALS: BP 142/80
[2023-07-02] MEDS ORDERED: FentaNYL Citrate 50 MCG/ML 2 ML Injection IV PRN (22:30)
[2023-07-02] MEDS ORDERED: Zolpidem Tartrate 5 MG Tab PO PRN (22:30)
[2023-07-02] MEDS ORDERED: Ondansetron HCl 2 MG / ML 2ML Vial IV PRN (22:30)
[2023-07-02] MEDS ORDERED: Acetaminophen 500 MG Tab PO PRN (22:30)
[2023-07-02] MEDS ORDERED: Calcium Carbonate 500 MG Tab Chew PO PRN (22:30)
[2023-07-02 23:47] VITALS: BP 144/89
[2023-07-03] VITALS (48 sets, daily range): BP systolic 102–156; BP diastolic 54–90
[2023-07-03] MEDS ORDERED: Sertraline HCl 100 MG Tab PO SCH (09:00)
[2023-07-03] MEDS ORDERED: CeFAZolin Sodium 2,000 MG in NS 100 ML IV SCH (13:05)
[2023-07-03] MEDS ORDERED: Azithromycin 500 MG in NS 250 ML IV ONE (13:50)
[2023-07-03] MEDS ORDERED: Citric Acid/Sodium Citrate 30 ML BTL PO STA (13:56)
[2023-07-03] MEDS ORDERED: Citric Acid/Sodium Citrate 30 ML BTL ONE (13:58)
[2023-07-03] MEDS ORDERED: Lactated Ringer's 1,000 ML IV ONE (14:02)
[2023-07-03] MEDS ORDERED: FentaNYL Citrate 50 MCG/ML 2 ML Injection ONE (14:22)
--- NOTE | 2023-07-03 14:44 | NUR ---
07/03/23 1444 Jackelin Florez 2 GM STARTED AT 1433 BY ANESTHESIA
[2023-07-03] MEDS ORDERED: Oxytocin 10 Unit / ML Vial ONE (14:57)
[2023-07-03] MEDS ORDERED: Phenylephrine HCl 100 MCG/ML-NS 10MLSYR (1MG/10ML) ONE (14:57)
[2023-07-03] MEDS ORDERED: Ondansetron HCl 2 MG / ML 2ML Vial ONE (14:58)
[2023-07-03] MEDS ORDERED: Diphth,Pertuss(Acell),Tet Vac 0.5 ML VIAL IM SCH (15:40)
[2023-07-03] MEDS ORDERED: LR Oxytocin 20 Units 1,000 ML IV SCH (15:40)
[2023-07-03] MEDS ORDERED: Docusate Sodium/Senna 1 Tab PO PRN (15:40)
[2023-07-03] MEDS ORDERED: Carboprost Tromethamine 250 MCG/ML 1ML Amp IM PRN (15:45)
[2023-07-03] MEDS ORDERED: Simethicone 80 MG Chew PO PRN (15:45)
[2023-07-03] MEDS ORDERED: Bethanechol CHl 25 MG Tab PO PRN (15:45)
[2023-07-03] MEDS ORDERED: Benzocaine Topical Anesthetic Spray 60GM TOP PRN (15:45)
[2023-07-03] MEDS ORDERED: HYDROmorphone HCl/Pf 1MG SYR IV PRN (15:45)
[2023-07-03] MEDS ORDERED: Witch Hazel/Glycerin PADS TOP PRN (15:45)
[2023-07-03] MEDS ORDERED: Rho(D) Immune Globulin 300 MCG / SYR IM ONE (15:45)
[2023-07-03] MEDS ORDERED: Misoprostol 200 MCG Tab PO PRN (15:50)
[2023-07-03] MEDS ORDERED: Promethazine HCl 25 MG Tab PO PRN (15:50)
[2023-07-03] MEDS ORDERED: OxyCODONE HCL 5 MG TAB PO PRN ×2 (15:50)
[2023-07-03] MEDS ORDERED: Oxytocin 10 Unit / ML Vial IM ONE (15:50)
[2023-07-03] MEDS ORDERED: Misoprostol 200 MCG Tab PR PRN (15:55)
[2023-07-03] MEDS ORDERED: Lactated Ringer's 1,000 ML IV SCH ×2 (15:55→19:20)
[2023-07-03] MEDS ORDERED: Lanolin Cream TOP PRN (15:55)
[2023-07-03] MEDS ORDERED: Measles/Mumps/Rubella Vaccine 0.5 ML Vial SC SCH (15:55)
[2023-07-03] MEDS ORDERED: Ondansetron 8 MG SoluTab MM PRN (15:55)
[2023-07-03] MEDS ORDERED: Ibuprofen 400 MG Tab PO SCH (16:00)
[2023-07-03] MEDS ORDERED: Ketorolac Tromethamine 30mg Vial IV SCH (16:00)
--- NOTE | 2023-07-03 16:03 | NUR ---
PT DENIES PAIN. ALERT AND ORIENTED. NB TO BREAST.
--- NOTE | 2023-07-03 16:23 | NUR ---
1614:TX TO ROOM 116, REPORT GIVEN TO PEEWEE VENEGAS. BIOX 100%
[2023-07-03] MEDS ORDERED: Acetaminophen 325 MG TABLET PO SCH (18:00)
[2023-07-03] MEDS ORDERED: Polyethylene Glycol 3350 119 GM PO SCH (18:00)
[2023-07-03] MEDS ORDERED: Polyethylene Glycol 3350 17 gm PO SCH (19:00)
[2023-07-04 04:28] VITALS: BP 139/88
[2023-07-04 06:35] LABS: BASOPHILS ABSOLUTE AUTO 0.02 K/mm3 (0.00-0.23); BASOPHILS PERCENT AUTO 0 % (0-2); EOSINOPHILS ABSOLUTE AUTO 0.06 K/mm3 (0.00-0.68); EOSINOPHILS PERCENT AUTO 1 % (0-6); Hematocrit 34.7 % (33.0-51.0); Hemoglobin 11.9 g/dL (11.5-16.0); IMMATURE GRAN ABSOLUTE AUTO 0.03 K/mm3 (0.00-0.10); IMMATURE GRAN PERCENT AUTO 0 % (0-1); LYMPHOCYTES ABSOLUTE AUTO 1.87 K/mm3 (0.84-5.20); LYMPHOCYTES PERCENT AUTO 23 % (21-46); MONOCYTES ABSOLUTE AUTO 0.84 K/mm3 (0.16-1.47); MONOCYTES PERCENT AUTO 10 % (4-13); Mean Corpuscular HGB 30.1 pg (26.0-34.0); Mean Corpuscular HGB Conc 34.3 g/dL (31.5-36.5); Mean Corpuscular Volume 88 fL (80-100); Mean Platelet Volume 10.5 fL (9.1-12.4); NEUTROPHILS ABSOLUTE AUTO 5.37 K/mm3 (1.96-9.15); NEUTROPHILS PERCENT AUTO 66 % (41-73); Platelet Count 172 K/mm3 (150-400); RDW Standard Deviation 61.2 fL (35.1-46.3); Red Blood Cell Count 3.96 M/mm3 (3.80-5.20); White Blood Cell Count 8.19 K/mm3 (4.00-11.30)
[2023-07-04 08:34] VITALS: BP 134/81
[2023-07-04] MEDS ORDERED: Prenatal Vit/FE Fumarate/FA 1 Tab PO SCH (09:00)
[2023-07-04 17:28] VITALS: BP 126/60
[2023-07-04 20:03] VITALS: BP 134/78
[2023-07-04 23:33] VITALS: BP 135/80
[2023-07-05 04:03] VITALS: BP 145/90
[2023-07-05 09:08] VITALS: BP 145/94
[2023-07-05] MEDS ORDERED: IBUP800 PO (10:10)
[2023-07-05] MEDS ORDERED: ACET500 PO (10:11)
--- NOTE | 2023-07-05 11:53 | NUR ---
DISCHARGE MOTHER FEELING MUCH BETTER WITH LAST 2 FEEDS THAT SHE IS READY TO GO HOME. VSS. AFEBRILE. LOCHIA SCANT AND INCISION C/D/I. VERBALIZES UNDERSTANDING OF DC INSTRUCTIONS AND FOLLOW UP APPOINTMENTS. CARING FOR SELF AND BABY INDEPENDANTLY. DC HOME STABLE.
[2023-07-05 12:02] VITALS: BP 135/81
== END 2023-07-05 13:00 | disposition home or self-care (01) | DRG 787 ==
LOC: OBS 19:00 → BC 19:02 → OBS 19:20 → BC 19:20
PROVIDERS: Family Medicine; ADMIT Obstetrics & Gynecology
PROC: 10H07YZ Insertion of Other Device into Products of Conception, Via Natural or Artificial Opening (ICD-10-PCS; 2023-07-03)
PROC: 10D00Z1 Extraction of Products of Conception, Low, Open Approach (ICD-10-PCS; principal; 2023-07-03 14:00)
DX: O99.344 Other mental disorders complicating childbirth (principal); O10.92 Unspecified pre-existing hypertension complicating childbirth; O99.354 Diseases of the nervous system complicating childbirth; Z37.0 Single live birth; F41.8 Other specified anxiety disorders; Z3A.37 37 weeks gestation of pregnancy; G90.A Postural orthostatic tachycardia syndrome [POTS]; O99.214 Obesity complicating childbirth; O99.52 Diseases of the respiratory system complicating childbirth; J45.909 Unspecified asthma, uncomplicated; O99.02 Anemia complicating childbirth; D50.9 Iron deficiency anemia, unspecified; O76 Abnormality in fetal heart rate and rhythm complicating labor and delivery; O77.0 Labor and delivery complicated by meconium in amniotic fluid
CPT/HCPCS: 36415; 51702; 85025; 86850; 86900; 86901; A9270; J0456; J1885; J2371; J2405; J2590; J3010; J7050; J7120

== ENCOUNTER → 2023-07-19 | Outpatient (CLI) | payer OTHER ==
[~2023-07-19] MED LIST changes: +ACET500 PO; +IBUP800 PO
[2023-07-19 18:28] LABS: Source, Urine Clean Catch
[2023-07-19 19:37] LABS: Appearance, Urine Clear (Clear); Bilirubin, Urine Neg (Neg); Blood, Urine 5+ (Neg); Color, Urine Yellow (P-Yellow); Glucose Qualitative, Urine Neg (Neg); Ketones, Urine Neg (Neg); Leukocyte Esterase, Urine 1+ (Neg); Nitrite, Urine Neg (Neg); Protein, Urine 1+ (Neg); Urobilinogen, Urine NORM (Normal)
[2023-07-19 19:51] LABS: Bacteria Mod /hpf; Squamous Epithelial Cells Mod /hpf (Few)
== END ==
LOC: LAB 18:27 → LAB SHORT 18:27
PROVIDERS: Obstetrics & Gynecology
DX: R30.0 Dysuria (principal)
CPT/HCPCS: 81001; 87077; 87086; 87186